=== PATIENT | male | born 1990 | race Caucasian/White ===

== ENCOUNTER 2017-05-10 20:33 | Inpatient (IN) | payer OTHER ==
[2017-05-10] MEDS ORDERED: FENTANYL CITRATE INJ/PF 100 MCG/2 ML AMPUL ONE (20:38)
[2017-05-10] MEDS ORDERED: KETAMINE HCL INJ 500 MG/10 ML VIAL IV ONE ×2 (20:43→22:23)
[2017-05-10] MEDS ORDERED: DIPH/PERTUSS(ACELL)/TETANUS VAC/PF 0.5 ML SYR (>=10YO) IM ONE (20:44)
[2017-05-10] MEDS ORDERED: CEFAZOLIN 2 GM/D5W RTU 50 ML IV ONE (20:44)
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
[2017-05-10 21:07] LABS: ABSOLUTE BASOPHILS # (AUTO) 0.1 10^3/uL (0.0-0.2); ABSOLUTE LYMPHOCYTES (AUTO) 3.4 10^3/uL (0.5-4.7); ABSOLUTE MONOCYTES (AUTO) 1.2 10^3/uL (0.1-1.4); ABSOLUTE NEUT (AUTO) 7.6 10^3/uL (1.7-8.2); BASOPHILS % (AUTO) 0.5 % (0-2); EOSINOPHILS % (AUTO) 0.4 % (0-6); HEMATOCRIT 42.7 % (37.9-51.0); HEMOGLOBIN 14.2 g/dL (13.5-17.0); HGB HCT DIFFERENCE -0.1; LYMPHOCYTES % (AUTO) 27.7 % (13-45); MEAN CORPUSCULAR HEMOGLOBIN 29.8 pg (27.0-33.4); MEAN CORPUSCULAR HGB CONC 33.3 g/dL (32.0-36.0); MEAN CORPUSCULAR VOLUME 90 fl (80-97); MONOCYTES % (AUTO) 9.4 % (3-13); RED BLOOD COUNT 4.77 10^6/uL (4.35-5.55); RED CELL DISTRIBUTION WIDTH 13.4 % (11.5-14.0); WHITE BLOOD COUNT 12.2 10^3/uL (4.0-10.5)
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
--- NOTE | 2017-05-10 21:17 | RADIOLOGY REPORT (SQ) ---
EXAM DESCRIPTION: TIBIA FIBULA RIGHT COMPLETED DATE/TIME: 05/10/2017 9:04 pm REASON FOR STUDY: POST REDUCTION COMPARISON: None. NUMBER OF VIEWS: One view. TECHNIQUE: Frontal image acquired of the right tibia and fibula to include the knee and ankle in at least one projection. LIMITATIONS: None. FINDINGS: MINERALIZATION: Normal. BONES: Comminuted fractures of the tibia and fibula. Improved positioning. SOFT TISSUES: No obvious swelling or foreign body. OTHER: No other significant finding. IMPRESSION: COMMINUTED FRACTURES OF THE TIBIA AND FIBULA. IMPROVED POSITIONING. TECHNICAL DOCUMENTATION: JOB ID: [id number] [employer]- All Rights Reserved
[2017-05-10 21:26] LABS: ANION GAP 14 (5-19); BLOOD UREA NITROGEN 16 mg/dL (7-20); CALCIUM 9.3 mg/dL (8.4-10.2); CARBON DIOXIDE 25 mmol/L (22-30); CHLORIDE 100 mmol/L (98-107); CREATININE RESULT 1.01 mg/dL (0.52-1.25); GLUCOSE 101 mg/dL (75-110); POTASSIUM 3.4 mmol/L (3.6-5.0); SODIUM 139.1 mmol/L (137-145)
[2017-05-10] MEDS ORDERED: HYDROMORPHONE HCL INJ/PF 2 MG/ML AMPULE IV PRN (21:47)
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
[2017-05-10] MEDS ORDERED: ONDANSETRON HCL INJ/PF 4 MG/2 ML SDV IV PRN (22:32)
[2017-05-11] MEDS: HYDROMORPHONE HCL INJ/PF 2 MG/ML AMPULE IV PRN ×8 (00:41→23:36)
[2017-05-11] MEDS: RINGERS SOLUTION,LACTATED 1,000 ML IV PRN ×2 (00:42→16:01)
[2017-05-11] MEDS: OXYCODONE-ACETAMINOPHEN 5-325 MG TABLET PO PRN ×4 (02:24→22:41)
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
[2017-05-11] MEDS ORDERED: SUCCINYLCHOLINE CHLORIDE INJ 200 MG/10 ML VIAL ONE (08:45)
[2017-05-11] MEDS ORDERED: DEXAMETHASONE SOD PHOSPHATE INJ 4 MG/1 ML VIAL ONE (08:45)
[2017-05-11] MEDS ORDERED: ONDANSETRON HCL INJ/PF 4 MG/2 ML SDV ONE (08:45)
[2017-05-11] MEDS ORDERED: LIDOCAINE 2% INJ-PF (20 MG/ML) 10 ML AMPUL ONE (08:45)
[2017-05-11 12:42] LABS: URINE BARBITURATES SCREEN NEGATIVE; URINE METHADONE SCREEN NEGATIVE; URINE PHENCYCLIDINE SCREEN NEGATIVE
[2017-05-11 12:47] LABS: URINE OPIATES LOW UNCONFIRMED POSITIVE
[2017-05-11] MEDS ORDERED: CEFAZOLIN INJ 1 GM VIAL ONE (18:40)
[2017-05-11] MEDS ORDERED: HYDROMORPHONE HCL INJ/PF 2 MG/ML AMPULE ONE (18:48)
[2017-05-11] MEDS ORDERED: FENTANYL CITRATE INJ/PF 100 MCG/2 ML AMPUL ONE ×2 (18:48→18:49)
[2017-05-11] MEDS ORDERED: MIDAZOLAM 2 MG/2 ML INJ ONE (18:49)
[2017-05-11] MEDS ORDERED: PROPOFOL INJ 200 MG/20 ML VIAL IV ONE (18:49)
[2017-05-11] MEDS ORDERED: ACETAMINOPHEN 100 ML IV ONE (18:49)
[2017-05-11] MEDS ORDERED: MEPERIDINE HCL/PF INJ 25 MG/1 ML DISP.SYRIN IV PRN (20:02)
[2017-05-11] MEDS ORDERED: FENTANYL CITRATE INJ/PF 100 MCG/2 ML AMPUL IV PRN ×3 (20:02)
[2017-05-11] MEDS ORDERED: DIPHENHYDRAMINE HCL 50 MG/ML VIAL IV PRN (20:02)
[2017-05-11] MEDS ORDERED: MORPHINE SULFATE 10 MG/ML INJ IV PRN (20:02)
[2017-05-11] MEDS ORDERED: DEXMEDETOMIDINE INJ 80 MCG/20 ML VIAL IV ONE (20:44)
[2017-05-11] MEDS ORDERED: BUPIVACAINE HCL 0.5 % INJ/PF 30 ML SDV ONE (20:44)
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
[2017-05-11] MEDS: FENTANYL CITRATE INJ/PF 100 MCG/2 ML AMPUL ONE ×3 (21:35→21:45)
[2017-05-11] MEDS ORDERED: LORAZEPAM INJ 2 MG/1 ML VIAL ONE (21:35)
--- NOTE | 2017-05-11 21:35 | Progress Note ---
Provider Note Provider Note: Patient having pain in PACU. No pain with passive stretch complains of significant pain around his knee. Part of the dressing removed close to the fracture site demonstrating compartment soft and compressible no sign of compartment syndrome. Refill less than 2 seconds. Intact flexion-extension of the toes. Patient will continue ice and aggressive elevation.
[2017-05-11] MEDS ORDERED: ZOLPIDEM TARTRATE 5 MG TABLET PO SCH (22:00)
[2017-05-12] MEDS: HYDROMORPHONE HCL INJ/PF 2 MG/ML AMPULE IV PRN ×4 (01:42→08:53)
[2017-05-12] MEDS: OXYCODONE-ACETAMINOPHEN 5-325 MG TABLET PO PRN (05:23)
[2017-05-12 10:13] VITALS: BP 118/76
[2017-05-12] MEDS ORDERED: RIVAROXABAN 10 MG TABLET PO SCH (17:00)
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
== END 2017-05-12 10:00 | disposition home or self-care (01) | DRG 494 ==
LOC: ER 20:33 → 4N 22:29 → EH 22:45 → UNDOADMIN 22:45 → 4N 23:35 → EH 23:35
PROVIDERS: ADMIT Orthopaedic Surgery; ATTEND Orthopaedic Surgery
PROC: 0QSGXZZ Reposition Right Tibia, External Approach (ICD-10-PCS; 2017-05-10)
PROC: 0QSJXZZ Reposition Right Fibula, External Approach (ICD-10-PCS; 2017-05-10)
PROC: 0QSJ04Z Reposition Right Fibula with Internal Fixation Device, Open Approach (ICD-10-PCS; 2017-05-11)
PROC: 0QSG06Z Reposition Right Tibia with Intramedullary Internal Fixation Device, Open Approach (ICD-10-PCS; principal; 2017-05-11 19:00)
DX: S82.251A Displaced comminuted fracture of shaft of right tibia, initial encounter for closed fracture (principal); S82.451A Displaced comminuted fracture of shaft of right fibula, initial encounter for closed fracture; F17.210 Nicotine dependence, cigarettes, uncomplicated; V29.88XA Motorcycle rider (driver) (passenger) injured in other specified transport accidents, initial encounter; Y92.488 Other paved roadways as the place of occurrence of the external cause
CPT/HCPCS: 01480; 36415; 70450; 71010; 72125; 72170; 80048; 80307; 85025; 90471; 90715; 96365; 96375; 99291; 99152; C1713; J0131; J0330; J0690; J1100; J1170; J2060; J2250; J2405; J2704; J3010; J3490; J7120

== ENCOUNTER 2020-02-12 10:47 | Emergency (ER) | payer OTHER ==
[2020-02-12 10:58] VITALS: BP 137/92
--- NOTE | 2020-02-12 11:05 | ER Document Report ---
HPI - HPI Time Seen by Provider: 02/12/20 10:54 Pain Level: 5 Context: Patient is a 29-year-old male who presents the emergency department with a chief complaint of tooth pain to tooth #32. Patient states that he has had problems with this tooth for the past few weeks, but over the last week he has gotten progressively worse. Patient has not seen a dentist in a few years. Patient admits to smoking daily, about 3 to 4 cigarettes. Denies any fever, body aches, or chills. - CONSTITUTIONAL Constitutional: DENIES: Fever, Chills - EENT EENT: DENIES: Sore Throat, Ear Pain, Nasal Drainage-Clear, Nasal Drainage- Purulent, Congestion, Eye problems Notes: Tooth pain to tooth #32 - NEURO Neurology: DENIES: Headache - CARDIOVASCULAR Cardiovascular: DENIES: Chest pain - RESPIRATORY Respiratory: DENIES: Trouble Breathing, Coughing - MUSCULOSKELETAL Musculoskeletal: DENIES: Extremity pain - DERM Skin Color: Normal Skin Problems: None Past Medical History - Social History Smoking Status: Current Every Day Smoker Chew tobacco use (# tins/day): No Frequency of alcohol use: None Drug Abuse: None Family History: Reviewed & Not Pertinent Patient has suicidal ideation: No Patient has homicidal ideation: No Past Surgical History: Reports: Orthopedic Surgery - 2018 Vertical Provider Document - CONSTITUTIONAL Agree With Documented VS: Yes Exam Limitations: No Limitations General Appearance: No Apparent Distress - INFECTION CONTROL TRAVEL OUTSIDE OF THE [place] IN LAST 30 DAYS: No - HEENT HEENT: Atraumatic, Normocephalic, PERRLA Mouth Diagram: 1 - Infected tooth - NECK Neck: Normal Inspection - RESPIRATORY Respiratory: Breath Sounds Normal, No Respiratory Distress - CARDIOVASCULAR Cardiovascular: Regular Rhythm Pulses: Normal: Radial - MUSCULOSKELETAL/EXTREMETIES Musculoskeletal/Extremeties: FROM - NEURO Level of Consciousness: Awake, Alert, Appropriate Motor/Sensory: No Motor Deficit, No Sensory Deficit - DERM Integumentary: Warm, Dry, No Rash Course - Re-evaluation Re-evalutation: 02/12/20 Patient's physical exam and history is most consistent with a infected tooth. Patient is able to swallow, no facial swelling noted, airway is patent, vital signs are normal. I do not suspect Pablo's angina, peritonsilar abscess, or ai rway obstruction. The patient will be started on oral antibiotics. Patient will be started on erythromycin, as the patient has an allergy to penicillin and clindamycin is a very expensive. The patient does not have insurance. I have given the patient education on their antibiotics. Patient was given instructions to follow-up with a dentist this week. Return precautions were given. Verbal discharge instructions were given. Patient verbalized understanding. Patient is stable for discharge. - Vital Signs Vital signs: Temp Pulse Resp BP Pulse Ox 98.4 F 94 16 137/92 H 97 02/12/20 10:51 02/12/20 10:51 02/12/20 10:51 02/12/20 10:51 02/12/20 10:51 Discharge - Discharge Clinical Impression: Tooth ache Condition: Stable Disposition: HOME, SELF-CARE Instructions: [facility], Toothache ([facility]) Additional Instructions: You have been seen in the emergency department for a toothache. You may take ibuprofen 600 mg and Tylenol 1000 mg every 6 hours as needed for the pain. You have also been prescribed antibiotics. Please take the antibiotics as prescribed, even if you start to feel better. If you develop a fever greater than 100.4 F, or have any symptoms that are worrisome to you, please return to the emergency department. Please follow-up with a dentist this week in regards to your visit. Follow-up with [facility] in 1 week. Call them today to make an appointment. Prescriptions: Erythromycin Base [Erythromycin] 500 mg PO TID 7 Days #21 tablet.dr Forms: Return to Work Referrals: [facility] [Provider Group] - Follow up in 1 week
== END 2020-02-12 11:12 | disposition home or self-care (01) ==
LOC: ER 10:47
DX: K08.9 Disorder of teeth and supporting structures, unspecified (principal); F17.200 Nicotine dependence, unspecified, uncomplicated
CPT/HCPCS: 99282

== ENCOUNTER 2020-10-07 12:57 | Emergency (ER) | payer SELFPAY ==
[2020-10-07 13:19] VITALS: BP 128/72
--- NOTE | 2020-10-07 14:27 | ER Document Report ---
ED Skin Rash/Insect Bite/Abscs - General Chief Complaint: Skin Problem Stated Complaint: SKIN SORES Time Seen by Provider: 10/07/20 14:14 Primary Care Provider: SHIRA BENEDICT DO [NO LOCAL MD] - Follow up as needed Mode of Arrival: Ambulatory Information source: Patient Notes: Patient is a 22-year-old male comes emergency room complaining of having infection on his legs. Patient states he had a cat try carpals leg 4 days ago and scratch his right upper thigh. It has since become inflamed and hot. He also states that over the last 2 days he has had multiple small lesions pop up on his lower extremities on his upper extremities and his face that have been oozing a little bit of pus. Denies any other known contacts. Patient denies any use of methamphetamines. Denies any other medical problems. Patient does admit to smoking. He has been working outside as well. TRAVEL OUTSIDE OF THE [place] IN LAST 30 DAYS: No - HPI Patient complains to provider of: Skin rash/lesion, Tender/swollen area, Other - Cat scratch Onset: Other - 4 days Onset/Duration: Gradual, Worse Quality of pain: Throbbing Severity: Moderate Pain Level: 3 Skin Character: Erythema, Swelling, Tenderness, Thickening, Warm. No: Abscess Skin Temperature: Warm Quality of rash: Painful Identify cause: Yes - Cat scratch Exacerbated by: Movement, Walking Relieved by: Denies Similar symptoms previously: No Recently seen / treated by doctor: No - Related Data Allergies/Adverse Reactions: Penicillins Allergy (Verified 05/10/17 23:47) Past Medical History - General Information source: Patient - Social History Smoking Status: Current Every Day Smoker Cigarette use (# per day): Yes - Half pack Chew tobacco use (# tins/day): No Smoking Education Provided: Yes Frequency of alcohol use: None Drug Abuse: None Lives with: Family Family History: Reviewed & Not Pertinent Patient has homicidal ideation: No Past Surgical History: Reports: Hx Orthopedic Surgery - 2018 Review of Systems - Review of Systems Constitutional: No symptoms reported EENT: No symptoms reported Cardiovascular: No symptoms reported Respiratory: No symptoms reported Gastrointestinal: No symptoms reported Genitourinary: No symptoms reported Male Genitourinary: No symptoms reported Musculoskeletal: No symptoms reported Skin: See HPI, Change in color, Lesions Hematologic/Lymphatic: No symptoms reported Neurological/Psychological: No symptoms reported -: Yes All other systems reviewed and negative Physical Exam - Vital signs Vitals: Temp Pulse Resp BP Pulse Ox 99.4 F 85 18 128/72 H 99 10/07/20 13:19 10/07/20 13:19 10/07/20 13:19 10/07/20 13:19 10/07/20 13:19 Interpretation: Normal - Notes Notes: PHYSICAL EXAMINATION: GENERAL: Patient is a well-nourished well-developed 30-year-old male no apparent distress on physical exam today. HEAD: Atraumatic, normocephalic. EYES: Pupils equal round and reactive to light, extraocular movements intact, s clera anicteric, conjunctiva are normal. ENT: Nares patent, oropharynx clear without exudates. Moist mucous membranes. NECK: Normal range of motion, supple without lymphadenopathy LUNGS: Breath sounds clear to auscultation bilaterally and equal. No wheezes rales or rhonchi. HEART: Regular rate and rhythm without murmurs NEUROLOGICAL: Normal speech, normal gait. Normal sensory, motor exams PSYCH: Normal mood, normal affect. SKIN: Examination patient's area concern is his right upper thigh. Patient has on that right upper thigh a area of approximately 25 cm of erythema in all direc tions. He has a 8 cm linear scratch that appears to been caused by a cat. Moderate warmth to palpation no fluctuance is felt no sign of a abscess at this time. Further evaluation skin shows patient to have multiple lesions across the upper extremities and lower extremities and a few on the face different in size and shape but all less than a centimeter. They are almost scab-like although that when you palpate the area a couple did have some yellowish pus material as. Nothing is fluctuant enough to do an I&D. Course - Re-evaluation Re-evalutation: 10/07/20 14:25 At this time given the patient has a known cause of the infection but is allergic to penicillin we will place him on doxycycline 100 twice daily for 14 days. Also can write him for some Bactroban ointment for the external skin lesions. I am still not 100% certain that this are to related items although patient has been working outside. He also has denied any use of methamphetamines. I have instructed him to monitor this very closely if for any reason appears not to be getting better or it appears to be getting worse in the next 24 to 48 hours he is to return to ER for reevaluation. - Vital Signs Vital signs: Temp Pulse Resp BP Pulse Ox 99.4 F 85 18 128/72 H 99 10/07/20 13:19 10/07/20 13:19 10/07/20 13:19 10/07/20 13:19 10/07/20 13:19 Discharge - Discharge Clinical Impression: Cellulitis Qualifiers: Site of cellulitis: unspecified site Qualified Code(s): L03.90 - Cellulitis, unspecified Condition: Stable Disposition: HOME, SELF-CARE Instructions: Cellulitis (OM) Additional Instructions: Home and use the antibiotic cream 2-3 times a day on those affected areas. Take the antibiotic orally until completion. As we discussed you need to return to ER at once if it appears that these are getting more expanded or your fever is uncontrolled with Tylenol Motrin and the antibiotics. Prescriptions: Mupirocin [Bactroban 2% Ointment 22 gm] 22 applic TP BID #1 tube Doxycycline Hyclate 100 mg PO BID #28 tablet.dr Forms: Smoking Cessation Education Referrals: SHIRA BENEDICT DO [NO LOCAL MD] - Follow up as needed
== END 2020-10-07 14:30 | disposition home or self-care (01) ==
LOC: ER 12:57
DX: L03.115 Cellulitis of right lower limb (principal); F17.210 Nicotine dependence, cigarettes, uncomplicated
CPT/HCPCS: 99283